=== PATIENT | female | born 1980 | race Caucasian/White ===

== ENCOUNTER → 2020-02-26 | Outpatient (CLI) | payer OTHER ==
--- NOTE | 2020-02-28 15:48 | SLEEPCENT ---
NOCTURNAL POLYSOMNOGRAPHY DATE: 02/26/2020 ORDERED BY: SAMMI Brizuela Nocturnal polysomnography was performed for evaluation of sleep physiology. 7 hours and 11 minutes of data were reviewed. There were 326.5 minutes of sleep identified. Sleep latency was normal at 10.5 minutes. REM latency was mildly delayed at 120.5 minutes. Sleep architecture was fairly well preserved. There were three REM cycles. Two periods of wake were identified resulting in reduced sleep efficiency of 76.6%. The electrocardiogram showed a sinus rhythm with an average heart rate of 82 beats per minute. EEG showed normal waveforms for wake and sleep. There were 175 respiratory events identified of 10 seconds in duration or greater for an apnea-hypopnea index of 32.2. The events were primarily obstructive not exclusive to sleep stage nor body posture. Arousals from respiratory events occurred 11.9 times per hour and oxygen desaturations were seen below 90%. IMPRESSION: Obstructive sleep apnea syndrome (G47.33), apnea-hypopnea index 32.2. RECOMMENDATION: The patient should be encouraged to return to [facility] for [facility]. In the interim, alcohol and sedative avoidance should be practiced and caution exercised during the operation of motor vehicles.
== END ==
LOC: M SLEEP 20:00
PROVIDERS: ATTEND Physician Assistant Medical
DX: G47.33 Obstructive sleep apnea (adult) (pediatric) (principal)

== ENCOUNTER → 2020-04-07 | Outpatient (CLI) | payer OTHER ==
--- NOTE | 2020-04-11 15:51 | SLEEPCENT ---
DATE: 04/07/2020 NOCTURNAL POLYSOMNOGRAPHY CPAP TITRATION ORDERED BY: SAMMI Brizuela Nocturnal polysomnography was performed for the titration of pressure therapy in this patient with obstructive sleep apnea syndrome with apnea-hypopnea index of 32.2. For testing a ResMed AirFit F20 full face mask of small size was used, 4 cm of water pressure were applied to the circuit, and the lights were extinguished. 7 hours and 38 minutes of data were reviewed. There were 400 minutes of sleep identified. Sleep latency was short at 6 minutes. REM latency was normal at 99 minutes. Sleep architecture was good with five REM cycles noted. Overall sleep efficiency was 88.4%. The electrocardiogram showed a sinus rhythm with an average heart rate of 70 beats per minute; rate range 60 to 88. EEG showed normal waveforms for wake and sleep. Respiratory events were best palliated with CPAP at a pressure of 11 and remaining measures of sleep physiology were normal. IMPRESSION: Obstructive sleep apnea syndrome (G47.33). RECOMMENDATION: Nightly use of pressure therapy 11 cm of water.
== END ==
LOC: M SLEEP 20:00
PROVIDERS: ATTEND Physician Assistant Medical
DX: G47.33 Obstructive sleep apnea (adult) (pediatric) (principal)

== ENCOUNTER → 2021-07-28 | Outpatient (CLI) | payer OTHER | LOC: M SLEEP 20:00 | PROVIDERS: ATTEND Physician Assistant Medical | DX: G47.33 Obstructive sleep apnea (adult) (pediatric) (principal) ==